=== PATIENT | female | born 1980 | race Caucasian/White ===

== ENCOUNTER 2018-06-21 16:17 | Emergency (ER) | payer OTHER, SELFPAY ==
[2018-06-21 16:33] VITALS: BP 110/60; PULSE 64; RESP 18; TEMP 37.2; O2SAT 99
--- NOTE | 2018-06-21 17:31 | ED.GENADUL_ITS ---
Discharge Plan Disposition Patient Disposition: HOME Condition: Stable Discharge Details Chief Complaint: RespSymp Clinical Impression: Sinusitis Primary Care Provider: Emmanuel Argueta ED Provider: Escobar Maharaj Home Meds and New Rx's Prescriptions: New amoxicillin-pot clavulanate 875-125 mg tablet 1 tab PO BID Qty: 14 RF: 0 Continued multivitamin 1 EACH tablet 1 ea PO DAILY RF: 0 ascorbic acid (vitamin C) 1,000 MG tablet 1,000 mg PO DAILY RF: 0 acetaminophen [Tylenol Extra Strength] 500 MG tablet 500 mg PO PRN RF: 0 ibuprofen [Motrin IB] 200 MG tablet 600 mg PO PRN RF: 0 loratadine-pseudoephedrine [Claritin-D 24 Hour] 1 EACH tablet extended release 24 hr 1 ea PO PRN RF: 0 cholecalciferol (vitamin D3) [Vitamin D3] 400 UNIT capsule 400 unit PO DAILY RF: 0 fluticasone 16 GM spray,suspension 2 puff NS DAILY Qty: 2 RF: 4 Sertraline HCl [Zoloft] 100 MG tablet 100 mg PO DAILY Qty: 90 RF: 4 ranitidine HCl [Zantac] 150 MG tablet 150 mg PO HS RF: 0 Discharge Instructions Instructions: Sinusitis (ED) Additional Instructions: During illness please stay well-hydrated and get plenty of rest. You should continue to use your nasal saline rinses, your Flonase 1-2 puffs daily for the next couple weeks, [id number] Tylenol or Motrin as needed for discomfort, and probiotics 2 hours after your morning antibiotic dose to reduce GI upset. Feel free to return to the emergency department for emergent changes in your symptoms otherwise follow-up with primary care provider as needed for reassessment. Referrals: Emmanuel Argueta, DO [Primary Care Provider] - (As needed for reassessment) Medical Decision Making Patient presenting to the emergency department for chief complaint of cold symptoms. She states that she had a sinus infection in April but improved than 2 weeks ago started having nasal congestion, sinus pressure, nasal drainage. Then over the last 3 days she has developed fever chills, cough, w orsening symptoms. She states that she took some [id number] vitamins and pain medications but symptoms seem to worsen she is presenting the emergency department for evaluation. Patient has physical exam findings positive for sinus tenderness with more on the left than the right and more maxillary than frontal or ethmoid, complaint of some dental pain, mildly erythematous tonsils otherwise unremarkable HEENT exam, no lymphadenopathy, clear lungs and normal cardiac exam. Patient has no signs or symptoms of meningitis, sinus thrombosis, or other emergent diagnoses. Given double illness sign and symptoms greater than 10 days with return of fever patient placed up on Augmentin. Patient states that she had some GI upset with Augmentin as a high school but no signs of anaphylactoid type reaction so patient was agreeable to receiving Augmentin again for her sinus infection. Patient encouraged to use nenj-gkb-gkteocs Flonase, Motrin, and probiotics. After discussion of diagnosis and plan of care patient is no further needs, questions, or concerns and states clear understanding to return to the emergency department for any worsening symptoms. HPI General Mode of arrival: ambulatory . Date/Time Provider Initiated Documentation: 06/21/18 16:37 . Limitations to Documentation: no limitations . Information obtained by: patient and RN notes reviewed . History of Present Illness 37 year old F presents to the emergency department with the chief complaint of cold symptoms, with intensity rated at 2. Quality is described as aching, and is localized to the head (sinus pressure). Patient started experiencing this week(s) (2) and it has been constant. No relieving factors improve symptom(s), No exacerbating factors reported . Patient did receive the following treatments prior to arrival, NSAID Related Data Home Medications Medication Instructions Recorded Confirmed acetaminophen [Tylenol Extra 500 mg PO PRN 11/28/12 06/21/18 Strength] ascorbic acid (vitamin C) 1,000 mg PO DAILY 11/28/12 06/21/18 ibuprofen [Motrin IB] 600 mg PO PRN 11/28/12 06/21/18 multivitamin 1 ea PO DAILY 11/28/12 06/21/18 loratadine-pseudoephedrine 1 ea PO PRN 02/29/16 06/21/18 [Claritin-D 24 Hour] cholecalciferol (vitamin D3) 400 unit PO DAILY 03/12/17 06/21/18 [Vitamin D3] ranitidine HCl [Zantac] 150 mg PO HS 06/29/17 06/21/18 fluticasone 2 puff NS DAILY #2 spray 10/25/17 06/21/18 amoxicillin-pot clavulanate 1 tab PO BID #14 tab 06/21/18 Previous Rx's Medication Instructions Recorded fluticasone 2 puff NS DAILY #2 spray 10/25/17 amoxicillin-pot clavulanate 1 tab PO BID #14 tab 06/21/18 Allergies Allergy/AdvReac Type Severity Reaction Status Date / Time clavulanic acid AdvReac Mild GI Unverified 06/21/18 16:41 General Stated Complaint: RespSymp BANDAR: 3 Review of Systems Constitutional Reports body ache(s), Reports chills, Reports fever(s), Reports headache(s) and Reports malaise Eyes Denies eye discharge ENT Denies otalgia, Reports facial pain, Reports headache(s), Reports nasal congestion, Reports nasal discharge, Denies neck pain, Reports post nasal drip, Reports sinus pain, Reports sinus pressure, Reports sore throat and Denies throat swelling Cardiovascular Denies chest pain and Denies dyspnea Respiratory Reports cough and Denies dyspnea Musculoskeletal Denies joint swelling and Denies neck pain Integumentary/Breasts Denies rash Neurologic Reports headache(s) Allergic/Immunologic Denies throat swelling [facility] Medical History Subserous leiomyoma of uterus (Acute 06/23/16) Right adrenal mass (Acute 05/31/16) Other abnormal Papanicolaou smear of vagina and vaginal 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) Migraine (Acute) Intramural, submucous, and subserous leiomyoma of uterus (Acute 06/19/17) History of tobacco use (Acute) Family hx-breast malignancy (Acute) Depressive disorder (Acute) Family History Mother Breast cancer Father Heart disease Social History Smoking/Tobacco Use Status: Former Tobacco Use Exam Const General: cooperative, comfortable and no acute distress Orientation: alert and awake HENCT Head: normal to inspection, normocephalic and atraumatic Ears: hearing grossly normal bilaterally and TM's normal bilaterally General nose exam: external nose normal Face and sinus: no erythema and sinus tenderness frontal, ethmoid and maxillary (left more than right) Mouth: oral mucosae normal, no drooling, no muffled voice and no trismus Throat: posterior oropharynx normal, tonsils normal and uvula midline Neck Neck: normal visual inspection, full ROM, no lymphadenopathy, no meningeal signs, trachea midline and supple Resp Effort & Inspection: normal respiratory effort and able to speak in complete sentences Auscultation: clear to auscultation bilaterally Cardio Rate: regular rate Rhythm: regular rhythm Heart Sounds: S1 normal, S2 normal, normal S1 and S2, no click, no gallops, no murmurs and no rubs Skin General skin exam: no rashes or lesions noted and dry skin (warm) Neuro General: alert, awake, oriented x3, gait normal and moves all extremities Cognition: normal cognition Speech: speech normal Course Vital Signs Temperature 37.2 C 06/21/18 16:33 Pulse 64 06/21/18 16:33 Respiratory Rate 18 06/21/18 16:33 Blood Pressure 110/60 06/21/18 16:33 Pulse Oximetry 99 06/21/18 16:33 Temperature 37.2 C 06/21/18 16:33 Temperature Source Oral 06/21/18 16:33 Pulse 64 06/21/18 16:33 Respiratory Rate 18 06/21/18 16:33 Respiratory Effort 06/21/18 17:03 Blood Pressure 110/60 06/21/18 16:33 Blood Pressure Position Sitting 06/21/18 16:33 Pulse Oximetry 99 06/21/18 16:33 Oxygen Delivery Method Room Air 06/21/18 16:33 Oxygen Flow Rate 0 06/21/18 16:33 Pain Level 0 06/21/18 16:33
[2018-06-21] MEDS: Amoxicillin 875/Clav. 125 TAB PO (17:36)
== END 2018-06-21 17:52 | disposition home or self-care (01) ==
LOC: ER 18:16
PROVIDERS: Emergency Provider Nurse Practitioner Family; PCP Emergency Medicine
DX: J01.90 Acute sinusitis, unspecified (principal); Z87.891 Personal history of nicotine dependence
CPT/HCPCS: 99283

== ENCOUNTER 2019-08-20 16:46 | Outpatient (REF) | payer OTHER, SELFPAY ==
--- NOTE | 2019-08-20 14:30 | PAPFT_PTH ---
PATIENT: Cami Pierce LOC: [facility] U#:[id number] AGE/SX: 39/F ROOM: RE08/20/[address]: Kristine Jara NP : 1980 BED: DIS: 08/20/2019 SPEC #: [id number] RECD: 08/20/19 18:03 STATUS: CHRISTIAN RENemo #: [id number] ANA: 08/20/19 14:[address]: Kristine Jara NP DEPT: [facility] Cytology RECD BY: Giana Shaffer ENTERED: 08/20/19 18:03 SP TYPE: PAPFT SARIAH DR: Emmanuel Argueta, DO Tissues: 1 - CX/ENDOCX FOR PAP SMEARS Procedures: PAP THIN PREP/UVM Screening HPV DNA PROBE Comments: [id number]
--- NOTE | 2019-08-20 14:30 | LABIA_PTH ---
PATIENT: Cami Pierce LOC: [facility] U#:[id number] AGE/SX: 39/F ROOM: RE08/20/[address]: Kristine Jara NP : 1980 BED: DIS: 08/20/2019 SPEC #: [id number] RECD: 08/20/19 17:08 STATUS: CHRISTIAN RENemo #: [id number] ANA: 08/20/19 14:[address]: Kristine Jara NP DEPT: Surgical Specimen RECD BY: Giana Shaffer ENTERED: 08/20/19 17:08 SP TYPE: LABIA OTHR DR: Emmanuel Argueta, Tissues: 1 - LABIA BX Procedures: GROSS AND MICRO LEVEL 4 Comments: [id number]
== END 2019-08-20 17:06 ==
LOC: LBN 16:46
PROVIDERS: PCP Emergency Medicine; Visit Provider Nurse Practitioner Women's Health
DX: D28.0 Benign neoplasm of vulva (principal); N90.89 Other specified noninflammatory disorders of vulva and perineum
CPT/HCPCS: 88142; 88305; 87624

== ENCOUNTER 2019-11-04 01:40 | Outpatient (CLI) | payer OTHER, SELFPAY ==
--- NOTE | 2019-11-04 07:30 | DI.MAMMO_ITS ---
EXAM: MAMMO SCREENING CLINICAL HISTORY: screening,Z12.39,FAMILY H/O BREAST CA,Z80.3 TECHNIQUE: Bilateral full field digital CC and MLO mammographic images were obtained with 3D tomosyn thesis and utilizing computer aided detection (CAD). COMPARISON: Available for comparison. FINDINGS: Masses/Architectural Distortion: There is increased asymmetric density in the outer left breast seen on the craniocaudad view. Microcalcifications: No suspicious pleomorphic-type are seen. Skin Thickening/Nipple Retraction: None. IMPRESSION: 1. Asymmetric breast tissue seen in the outer left breast on the craniocaudad view. 2. This area should be further evaluated with a spot compression view. Ultrasound may be indicated a t that time. BI-RADS Category 0 - Assessment Incomplete: Need additional imaging evaluation Breast Density - Category B - Scattered areas of fibroglandular density A negative radiographic report should not delay biopsy if a dominant or clinically suspicious mass is present. Up to ten percent of cancers are not identified on mammography. A negative report may reinforce clinical impression. Adenosis and dense breasts may obscure an underlying neoplasm. False positive reports average 6 to 10%. Patient will receive a letter notifying them of these results.
== END 2019-11-04 02:00 ==
PROVIDERS: PCP Emergency Medicine; Visit Provider Nurse Practitioner Women's Health
DX: Z12.31 Encounter for screening mammogram for malignant neoplasm of breast (principal); R92.8 Other abnormal and inconclusive findings on diagnostic imaging of breast; Z80.3 Family history of malignant neoplasm of breast
CPT/HCPCS: 77063; 77067

== ENCOUNTER 2019-11-19 01:53 | Outpatient (CLI) | payer OTHER, SELFPAY ==
--- NOTE | 2019-11-19 | DI.US_ITS ---
EXAM: MG MAMMO SCREEN CALL BACK UNI CLINICAL HISTORY: INCREASED ASYMMETRIC DENSITY IN OUTER LEFT BREAST TECHNIQUE: Mammograms were interpreted according to the usual protocol including computer analysis w [employer] CAD system, tomosynthesis and C-view imaging. COMPARISON: FINDINGS: The additional mammographic views of the left breast and left breast ultrasound are interpreted in co njunction. Recent mammogram showed asymmetric density projected laterally left breast on CC view. Additional ma mmographic view today with CC spot compression view shows no evidence of a mass or significant asymme try. Breast ultrasound shows no evidence of a mass or cyst in the left breast. IMPRESSION: No specific evidence of malignancy at this time. Follow-up unilateral left breast mammogram recommen ded in 6 months. BI-RADS Cat 3 - 6 month - Probably Benign Finding: Recommend follow-up mammography in 6 months: Breast Density - Category B - Scattered areas of fibroglandular density
== END 2019-11-19 02:13 ==
PROVIDERS: PCP Emergency Medicine; Visit Provider Nurse Practitioner Women's Health
DX: Z12.31 Encounter for screening mammogram for malignant neoplasm of breast (principal); R92.8 Other abnormal and inconclusive findings on diagnostic imaging of breast; N64.59 Other signs and symptoms in breast
CPT/HCPCS: 76642; 77063; 77067

== ENCOUNTER 2020-06-03 00:34 | Outpatient (CLI) | payer OTHER, SELFPAY ==
--- NOTE | 2020-06-03 09:20 | DI.MAMMO_ITS ---
EXAM: MG MAMMO DIAGNOSTIC UNI-LEFT CLINICAL HISTORY: 6 month f/u on Cat 3, Left side,R92.8, FAMILY H/O BREAST CA,Z80.3. TECHNIQUE: Unilateral spot mammographic images were obtained with 3D Tomosynthesistechnique and util izing computer aided detection (CAD). COMPARISON: Prior baseline mammogram October 2019. Ultrasound November 2019 was reviewed FINDINGS: The previously described asymmetric density in the upper quadrant of the left breast is unchanged and remains benign in appearance. No discrete concerning nodular density was evident at this level on the prior ultrasound. No other areas of concern in the left breast. Normal appearing microcalcification groups. No oscar ectural distortion. No skin thickening-traction. IMPRESSION: No radiographic evidence of malignancy in left breast. Appropriate follow-up is to keep this patient yearly mammogram schedule, this implying the next [facility] mammogram would be in October or November 2020, with earlier imaging if a self detected breast changes n oted.. BI-RADS Category 2 - Benign Findings Breast Density - Category B - Scattered areas of fibroglandular density Breast density Category C or D implies that the patient has dense breast tissue. Dense breast tissue can make it harder to find cancer on a mammogram. Dense breast tissue is also associated with an incr eased risk of breast cancer. This information about the result of the mammogram report was provided to the patient to raise their awareness. Use this report when you speak with the patient about their risks for breast cancer, which includes their family history. At that time, you may recommend additional screening tests (Ultrasoun d or MRI) as these tests may add significant information. A negative radiographic report should not delay biopsy if a dominant or clinically suspicious mass is present. Up to ten percent of cancers are not identified on mammography. A negative report may reinforce clinical impression. Adenosis and dense breasts may obscure an underlying neoplasm. False positive reports average 6 to 10%. Patient will receive a letter notifying them of these results.
== END 2020-06-03 00:54 ==
PROVIDERS: PCP Emergency Medicine; Visit Provider Nurse Practitioner Women's Health
DX: R92.8 Other abnormal and inconclusive findings on diagnostic imaging of breast (principal); Z80.3 Family history of malignant neoplasm of breast
CPT/HCPCS: 77061; 77065; G0279

== ENCOUNTER 2020-11-05 09:16 | Outpatient (REF) | payer OTHER, SELFPAY ==
[2020-11-05 13:33] LABS: Calculated LDL 142 mg/dL (<100); Cholesterol 208 mg/dL (<200); HDL Cholesterol 41 mg/dL (40-60); Triglyceride 126 mg/dL (<150)
[2020-11-05 14:33] LABS: Hemoglobin A1C 5.6 % (<5.7)
== END 2020-11-05 09:17 | disposition home or self-care (01) ==
LOC: LBN 09:16
PROVIDERS: PCP Emergency Medicine; Visit Provider Emergency Medicine
DX: E11.9 Type 2 diabetes mellitus without complications (principal); E66.3 Overweight
CPT/HCPCS: 80061; 83036

== ENCOUNTER 2021-03-30 15:38 | Outpatient (REF) | payer OTHER, SELFPAY ==
[2021-03-31 23:21] LABS: COVID-19 RT-PCR UVMMC Result Negative (Negative)
== END 2021-03-30 15:39 | disposition home or self-care (01) ==
LOC: LBN 15:38
PROVIDERS: PCP Emergency Medicine; Visit Provider Nurse Practitioner Family
DX: Z20.822 Contact with and (suspected) exposure to COVID-19 (principal); J02.9 Acute pharyngitis, unspecified
CPT/HCPCS: U0003; 87070

== ENCOUNTER 2021-06-20 00:46 | Outpatient (CLI) | payer OTHER, SELFPAY ==
--- NOTE | 2021-06-20 06:45 | DI.MAMMO_ITS ---
Exam(s) MAMMO SCREENING EXAM: MAMMO SCREENING CLINICAL HISTORY: screening,z12.39 TECHNIQUE: Mammograms were interpreted according to the usual protocol including computer analysis w [employer] CAD system, tomosynthesis and C-view imaging. COMPARISON: 2020 FINDINGS: The breasts are composed of scattered fibroglandular densities, Breast Density category B. No suspicious masses or suspicious microcalcifications are seen. No skin thickening or abnormal axillary lymph nodes are seen. There has been no significant change from prior exams. IMPRESSION: BI-RADS Category 1, Negative mammogram Yearly screening mammography is recommended. Breast Density - Category B, scattered fibroglandular densities. A negative radiographic report should not delay biopsy if a dominant or clinically suspicious mass is present. Up to ten percent of cancers are not identified on mammography. A negative report may reinforce clinical impression. Adenosis and dense breasts may obscure an underlying neoplasm. False positive reports average 6 to 10%. Patient will receive a letter notifying them of these results.
== END 2021-06-20 01:06 ==
PROVIDERS: PCP Emergency Medicine; Visit Provider Emergency Medicine
DX: Z12.31 Encounter for screening mammogram for malignant neoplasm of breast (principal)
CPT/HCPCS: 77063; 77067

== ENCOUNTER 2022-07-19 02:01 | Outpatient (CLI) | payer OTHER, SELFPAY ==
--- NOTE | 2022-07-19 07:00 | DI.CT_ITS ---
Exam(s) CT ABDOMEN WO/W EXAM: CT ABDOMEN WO/W CLINICAL HISTORY: F/U RT ADRENAL MASS, E27.9. TECHNIQUE: Imaging Protocol: Axial computed tomography images with coronal and sagittal reformatted images were created and reviewed CONTRAST MATERIAL: Intravenous: Omnipaque 350 Contrast volume:100 mL contrast route:IV - Oral: No COMPARISON: CT ABD PELVIS WITH CONTRAST from 05/30/2016 FINDINGS: ABDOMEN: Lung Bases: Normal where visualized. Liver: Normal density. No measurable mass. Gallbladder and biliary tract: No radiodense calculus or dilation. Pancreas: Normal density, no abnormal calcifications or inflammatory process. Spleen: Normal. Kidneys: Normal size, contour and axis. No radiodense stones or obstructive uropathy. No masses seen. Adrenal glands: Homogeneous circumscribed mass right adrenal gland shows mild increase in size when c ompared with 2016, measuring 2.7 x 3.2 cm compared with 2.2 cm on the prior exam.. Pre contrast imag ing shows water density. Postcontrast imaging and delayed imaging show high relative and absolute wa shout values of above 80 percent. The findings are consistent with an adenoma. Abdominal Aorta: Abdominal portion non-dilated. Lymph nodes: Within normal limits. Bones: Unremarkable for age. IMPRESSION: Imaging characteristics of right adrenal mass are consistent with an adenoma. There has been mild in terval increase in size compared with 2016. RADIATION DOSE DELIVERED: 1,932.43mGy.cm Total DLP DATA REPOSITORY: All CT scans at this facility are submitted to the National Radiology Data Registry (NRDR) Dose Index Registry (DIR) with the [employer] (ACR). RADIATION OPTIMIZATION: All CT scans at this facility use at least one of these dose optimization te chniques: automated exposure control; mA and/or kV adjustment per patient size (includes targeted exa ms where dose is matched to clinical indication); or iterative reconstruction.
[2022-07-19] MEDS: Omnipaque 350 MG/ML 500 ML BTL-Imaging package IJ (09:10)
== END 2022-07-19 02:21 ==
PROVIDERS: PCP Nurse Practitioner Family; Visit Provider Nurse Practitioner Family
DX: E27.8 Other specified disorders of adrenal gland (principal); D35.01 Benign neoplasm of right adrenal gland
CPT/HCPCS: 74170

== ENCOUNTER 2022-07-26 02:29 | Outpatient (CLI) | payer OTHER, SELFPAY ==
--- NOTE | 2022-07-26 08:30 | DI.MAMMO_ITS ---
Exam(s) MAMMO SCREENING EXAM: MAMMO SCREENING CLINICAL HISTORY: SCREENING FOR BREAST CANCER Z12.39 FAM HX BREAST CANCER Z80.3 TECHNIQUE: Bilateral full field digital CC and MLO mammographic images were obtained with 3D tomosyn thesis and utilizing computer aided detection (CAD). COMPARISON: Available for comparison. FINDINGS: Masses/Architectural Distortion: There is a 5 mm nodule in the outer right breast on the craniocaudad view. Not readily apparent on the prior examination. There are no areas of architectural distortio n. Microcalcifications: No suspicious pleomorphic-type are seen. Skin Thickening/Nipple Retraction: None. IMPRESSION: 1. New 5 mm nodule in the outer right breast on the craniocaudad view. 2. Spot compression of the right CC is recommended. In addition, spot compression of the upper right breast on the MLO views recommended. Ultrasound may be indicated at that time. BI-RADS Category 0 - Assessment Incomplete: Need additional imaging evaluation Breast Density - Category B - Scattered areas of fibroglandular density Breast density category C or D implies that the patient has dense breast tissue. Dense breast tissue is very common and is not abnormal but dense breast tissue can make it harder to find cancer on a ma mmogram. Also, dense breast tissue may increase their breast cancer risk. This information about the result of the mammogram report was provided to the patient to raise their awareness. Use this report when you speak with the patient about their risks for breast cancer, which includes their family hist ory. At that time, you may recommend for more screening tests (Ultrasound or MRI) as they might be us eful based on their risk. A negative radiographic report should not delay biopsy if a dominant or clinically suspicious mass is present. Up to ten percent of cancers are not identified on mammography. A negative report may reinforce clinical impression. Adenosis and dense breasts may obscure an underlying neoplasm. False positive reports average 6 to 10%. Patient will receive a letter notifying them of these results.
== END 2022-07-26 02:49 ==
LOC: DI 02:29
PROVIDERS: PCP Nurse Practitioner Family; Visit Provider Nurse Practitioner Family
DX: Z12.31 Encounter for screening mammogram for malignant neoplasm of breast (principal); R92.8 Other abnormal and inconclusive findings on diagnostic imaging of breast
CPT/HCPCS: 77063; 77067

== ENCOUNTER 2022-07-31 00:24 | Outpatient (CLI) | payer OTHER, SELFPAY ==
--- NOTE | 2022-07-31 10:15 | DI.MAMMO_ITS ---
Exam(s) MAMMO SCREEN CALL BACK UNI EXAM: MAMMO SCREEN CALL BACK UNI CLINICAL HISTORY: 5 MM NODULE IN OUTER RT BREAST ON CC VIEW TECHNIQUE: Spot compression views with tomographic imaging were performed. COMPARISON: 26 July 2022 and exams back to 2018. FINDINGS: Spot compression cc and MLO views were performed for an area of nodularity in the upper outer quadran t. Additional CC spot compression view was performed of the medial right breast for an area of nodul ar asymmetry. No suspicious masses or suspicious microcalcifications are seen. The medial breast, no persistent abnormality is seen on the additional views performed. The findings are consistent with overlying fibroglandular tissue. In the upper outer quadrant the lesion corresp onds to a skin tag. There has been no significant change from prior exams. IMPRESSION: BI-RADS Category 1, Negative Yearly screening mammography is recommended. Breast Density - Category B, scattered fibroglandular densities.
== END 2022-07-31 00:44 ==
LOC: DI 00:24
PROVIDERS: PCP Nurse Practitioner Family; Visit Provider Nurse Practitioner Family
DX: Z12.31 Encounter for screening mammogram for malignant neoplasm of breast (principal)
CPT/HCPCS: 77063; 77067

== ENCOUNTER 2023-01-17 08:40 | Outpatient (REF) | payer OTHER, SELFPAY ==
[2023-01-17 14:58] LABS: Abs Immature Grans 0.02 10^3/uL (0.0-0.06); Absolute Basophil Count 0.07 10^3/uL (0.0-0.2); Absolute Eosinophil Count 0.24 10^3/uL (0.0-0.7); Absolute Monocyte Count 0.67 10^3/uL (0.1-0.8); Absolute Neutrophil Count 6.06 10^3/uL (1.2-6.7); Basophils % 0.7; Eosinophils % 2.5; HCT 44.2 % (36.0-46.0); HGB 15.3 g/dL (11.2-15.7); Immature Grans % 0.2; Lymphocytes % 27.7; MCH 32.7 pg (27.0-33.0); MCHC 34.6 % (32.0-36.0); MCV 94 fL (80-95); Monocytes % 6.9; Platelet Count 377 10^3/uL (130-400); RBC 4.68 10^6/uL (3.93-5.22); RDW 11.9 % (11.7-14.6); RDW-SD 41.4 fL; WBC 9.76 10^3/uL (4.4-10.8)
[2023-01-17 15:44] LABS: ALT 36 U/L (14-59); AST 22 U/L (15-37); Albumin 3.8 g/dL (3.4-5.0); Alkaline Phosphatase 81 U/L (46-116); Anion Gap 8.3 mmol/L (3-11); BUN 9 mg/dL (7-18); Bilirubin, Total 0.5 mg/dL (0.2-1.0); CO2 27.7 mmol/L (21.0-32.0); CREATININE 0.9 mg/dL (0.55-1.02); Calcium 8.7 mg/dL (8.5-10.1); Calculated LDL 119 mg/dL (<100); Chloride 105 mmol/L (98-107); Cholesterol 208 mg/dL (<200); Estimated GFR 80.84 (mL/min/1.73m2); Glucose 108 mg/dL (74-106); HDL Cholesterol 39 mg/dL (40-60); Potassium 4.7 mmol/L (3.5-5.1); Sodium 141 mmol/L (136-145); TSH (W/Ref FT4) 2.59 uIU/mL (0.36-3.74); Total Protein 6.8 g/dL (6.4-8.2); Triglyceride 253 mg/dL (<150)
== END 2023-01-17 08:41 | disposition home or self-care (01) ==
LOC: NCHCN 08:40
PROVIDERS: PCP Nurse Practitioner Family; Visit Provider Nurse Practitioner Family
DX: R53.83 Other fatigue (principal); E66.9 Obesity, unspecified; F32.9 Major depressive disorder, single episode, unspecified; Z13.220 Encounter for screening for lipoid disorders
CPT/HCPCS: 80053; 80061; 84443; 85025

== ENCOUNTER 2024-01-10 13:46 | Outpatient (REF) | payer OTHER, SELFPAY ==
--- OUTSIDE RECORDS SUMMARY | 2024-01-10 13:49 | XMS_ITS | Encounter Summary ---
Author Organization [facility] Address [address] [place] [address] Care Team Providers Care Boatswains Mate Name Role Phone Emmanuel Argueta Primary Care Provider [phone] Encounter Details Date Type Department Care Team (Late st Contact Info) Description 08/20/2019 Lab Requisition [facility] Pathology & Laboratory Medicine - [address] [address] Kristine Jara, TYRE BUILDER [address] [place] [address] Encounter for other general examination Social History Tobacco Use Types Packs/Day Years Used Date Smoking Tobacco: Never Assessed Sex and Gender Information Value Date Recorded Sex Assigned at Not on file Gender Identity Not on file Sexual Orientation Not on file documented as of this encounter Plan of Treatment Not on file documented as of this encounter Procedures Procedure Name Priority Date/Time Associated Diagnosis Comments SURGICAL PATHOLOGY Today 08/20/2019 14 :30 EST Encounter for other general examination documented in this encounter Results * SURGICAL PATHOLOGY (08/20/2019 14:30 EST) Final Diagnosis A. SKIN OF VULVA, LABIA MINORA, RIGHT, SHAVE BIOPSY: - Acrochordon. See microscopic. 08/21/2019 14:20 EST [facility] at 1420 Microscopic Description Viral cytopathic effect is not seen. 08/21/2019 14:20 EST [facility] Clinical History R labia condyloma 08/21/2019 14:20 [facility] Attestation By the signature below, the attending physician certifies that they have 1) personally conducted a gross and/or microscopic examination of the described specimen(s), and/or personally interpreted the results of laboratory testing of the described specimen(s), and 2) personally rendered or confirmed the above diagnosis. 08/21/2019 14:20 [facility] at 1420 Gross Description A. Received in formalin labelled with proper patient identification (initials H, K) and R labia is a shave biopsy of a wrinkled wade couch polypoid skin covered nodule measuring 0.9 x 0.9 x 0.3 cm. Trisected and submitted entirely in A1. Kerri Lopez 08/21/2019 7:36 08/21/2019 14:20 [facility] Scanned Images 08/21/2019 14:20 [facility] Tissue STRUCTURE OF RIGHT LABIUM MINUS / Unknown 08/20/2019 14:30 EST 08/20/2019 22:16 EST Kristine Jara APRN PATHOLOGY ORDERAB LES [facility] [address] [place] [address] documented in this encounter Visit Diagnoses Diagnosis Encounter for other general examination documented in this encounter Care Teams Boatswains Mate Relationship Specialty Start Date End Date Emmanuel Argueta DO [address] [place] [id number] PCP - General 07/09/17 documented as of this encounter
--- OUTSIDE RECORDS SUMMARY | 2024-01-10 13:49 | XMS_ITS | Clinical Summary ---
Author Organization [facility] Address [address] [place] [address] Care Team Providers Care Delicatessen Goods Stock Clerk Name Role Phone KendallEmmanuel DO Primary Care Provider [phone]- [phone] Social History Tobacco Use Types Packs/Day Years Used Date Smoking Tobacco: Never Assessed Interpersonal Safety Answer Date Record ed Physically Hurt Never 01/18/2020 Verbally Threaten Not on file 01/18/2020 Sex and Gender Information Value Date Recorded Sex Assigned at Not on file Gender Identity Not on file Sexual Orientation Not on file Plan of Treatment Health Maintenance Due Date Last Done Comments Hepatitis C Screen 1980 Hepatitis B Vaccine (1 of 3 - 19+ 3-dose series) 08/15 COVID-19 Vaccine (2022- season) 2023 Care Teams Del[employer]atessen Goods Stock Clerk Relationship Specialty Start Date End Date Emmanuel Argueta DO [address] [place] [address] PCP - General 07/09/17
--- OUTSIDE RECORDS SUMMARY | 2024-01-10 13:49 | XMS_ITS | Encounter Summary ---
Author Organization [facility] Address [address] [place] [address] Care Team Providers Care Enterostomal Therapy Nurse Name Role Phone Unknown, Provider Primary Care Provider [phone] Encounter Details Date Type Department Care Team (Late st Contact Info) Description 07/04/2017 Results Only [facility] [phone] Paris Paz, [facility] [address] [place] [phone] Social History Tobacco Use Types Packs/Day Years Used Date Smoking Tobacco: Never Assessed Sex and Gender Information Value Date Recorded Sex Assigned at Not on file Gender Identity Not on file Sexual Orientation Not on file documented as of this encounter Plan of Treatment Not on file documented as of this encounter Procedures Procedure Name Priority Date/Time Associated Diagnosis Comments SURGICAL PATHOLOGY Routine 07/04/2017 9:58 EST documented in this encounter Results * SURGICAL PATHOLOGY (07/04/2017 9:58 EST) Pathology Report: SURGICAL PATHOLOGY REPORT Reports generated via electronic interface contain original data; however they are lacking the format of the original report. Caution should be taken when reading/interpreti ng unformatted reports. Name: ? ARIAS PIERCE ? Accession #: ? [id number] ? : ? 1980 (Age: 36) ??F ? Collect Date: ? 07/04/2017 ? Location: ? [facility] ? Receive Date: ? 07/05/2017 ? Provider: KEENAN WALTERS MD Copy to: HOOD LORENZO DO ? Final Pathologic Diagnosis: A. UTERUS AND FALLOPIAN TUBE, LEFT, HYSTERECTOMY AND SALPINGECTOMY: - Fragmented uterine tissue with: ? - Inactive endometrium. ? - Focally sclerotic leiomyomata, intramural. ? - Uterine serosa with no specific histopathologic features. - Fallopian tube, left: ? - Benign fallopian tube with no specific histopathologic features. B. FALLOPIAN TUBE, RIGHT, SALPINGECTOMY: - Paratubal cyst. Document reviewed and electronically signed by: Marine Malone MD Report ??Date: 07/07/2017 09:55 By the signature above, the attending physician certifies that he/she has personally conducted a gross and/or microscopic examination of the described specimens and rendered or confirmed the above diagnosis. Specimen(s) Received: A. ??Uterus and left fallopian tube B. ??Right fallopian tube Clinical History: Multiple uterine fibroids, S/P progesterone x3+ months; bilateral risk reducing salpingectomy Gross Description: A. ?Received in formalin labelled with proper patient identification (initials H, K) and uterus and left fallopian tube are multiple fragmented irregular uterine tissues, weighing 298 g and measuring 18.0 x 15.0 x 6.0 cm in aggregate. Obvious cervical tissues are not identified. Areas of intact serosa are without adhesions. The endometrial cavity appears compressed and is lined by a glistening wade surface, less than 0.1 cm in thickness. The myometrial tissues are trabecular and show a few intact yellow-couch to couch-white nodules. The majority of the tissue cores consist of similar disrupted trabecular yellow-couch to baptiste-white parenchyma, with focal areas of hemorrhage, suggestive of leiomyomatous tissue. Received in the same container is a 5.0 cm in length unremarkable fallopian tube, ranging from 0.4-0.8 cm in diameter. Vascular Technologist Sonographer sections are submitted as follows: BLOCK GALLO A1-A5- ??endomyometrium A6- ??uterine serosa A7-A14- ??leiomyomatous tissue cores A15- ??left fallopian tube, to include entire distal end and central cross sections B. ?Received in formalin labelled with proper patient identification (initials H, K) and right fallopian tube is a slightly tortuous fallopian tube segment (2.5 cm in length and 0.8 cm in diameter). The central tube shows an intact clear fluid filled thin walled cyst (0.4 cm in greatest dimension). Sections through the tube show a patent lumen, with an unremarkable wall. The entire fallopian tube tissue is submitted in B1 and B2. DENISE Ferrara (ASCP) 07/05/2017 2:42 PM End of Report [facility] 07/04/2017 9:58 EST 07/05/2017 9:58 EST Keenan Walters MD PATHOLOGY ORDERABLES [facility] [address] [place] [address] documented in this encounter Visit Diagnoses Not on filedocumented in this encounter Care Teams Enterostomal Therapy Nurse Relationship Specialty Start Date End Date Unknown, Provider, PCP - General 07/15/10 07/08/17 documented as of this encounter
--- OUTSIDE RECORDS SUMMARY | 2024-01-10 13:49 | XMS_ITS | Referral Summary ---
Author Organization [facility] Address [address] [place] [address] Care Team Providers Care Information Systems Security Manager Name Role Phone KendallEmmanuel lemus Primary Care Provider [phone] Social History Tobacco Use Types Packs/Day Years Used Date Smoking Tobacco: Never Assessed Interpersonal Safety Answer Date Record ed Physically Hurt Never 01/18/2020 Verbally Threaten Not on file 01/18/2020 Sex and Gender Information Value Date Recorded Sex Assigned at Not on file Gender Identity Not on file Sexual Orientation Not on file Plan of Treatment Not on file Care Teams Information Systems Security Manager Relationship Specialty Start Date End Date Emmanuel Argueta DO [address] [place] [address] PCP - General 07/09/17
--- OUTSIDE RECORDS SUMMARY | 2024-01-10 13:49 | XMS_ITS | Encounter Summary ---
Author Organization [facility] Address [address] [place] [address] Care Team Providers Care Metal Pourer Name Role Phone Unknown, Provider Primary Care Provider [phone] Encounter Details Date Type Department Care Team (Late st Contact Info) Description 02/01/2015 Results Only [facility] [phone] Paris Paz, [facility] [address] [place] [phone] Social History Tobacco Use Types Packs/Day Years Used Date Smoking Tobacco: Never Assessed Sex and Gender Information Value Date Recorded Sex Assigned at Not on file Gender Identity Not on file Sexual Orientation Not on file documented as of this encounter Plan of Treatment Not on file documented as of this encounter Procedures Procedure Name Priority Date/Time Associated Diagnosis Comments PAP TEST- RESULT ONLY Routine 02/01/2015 0:00 EDT documented in this encounter Results * PAP TEST- RESULT ONLY (02/01/2015 0:00 EDT) Pathology Report: CYTOPATHOLOGY REPORT Reports generated via electronic interface contain original data; however they are lacking the format of the original report. Caution should be taken when reading/interpreti ng unformatted reports. Name: ? CAMI PIERCE ? Accession #: ? [id number] ? : ? 1980 (Age: 34) ??F ?Collect Date: ? 02/01/2015 ? Location: ? [facility] ? Receive Date: ? 02/02/2015 ? Provider: PARIS PAZ BED TEACHER Copy to: HOOD LORENZO DO ? Final Report SPECIMEN ADEQUACY ? Satisfactory for Evaluation - transformation zone component present GENERAL CATEGORIZATION ? Negative for Intraepithelial Lesion or Malignancy ?? Last Menstrual Period: 12/09/14 Specimen/Source: ??Pap Test, Cervix/Endocervix, ThinPrep Imaging System with manual evaluation Document reviewed and electronically signed by: ? Pete Rogers, CT(ASCP) ? Report ??Date: 02/04/2015 15:18 HPV with Pap Test ? Date Ordered: ? 02/04/2015 ? Status: ?? Signed Out ?Date Complete: ? 02/08/2015 ? By: ??System Interface ? Date Reported: ? 02/08/2015 ? Interpretation RESULT: Negative for HPV. No E6 or E7 mRNA is detected from HPV types 16,18,31,33,35, 39,45,51,52,56,58, 59,66, and 68 by medical transcription editor mediated amplification. Comments Document reviewed and electronically signed by: ? System Interface ? Report date: 02/08/2015 By the signature above, the attending physician certifies that he/she has personally conducted a gross and/or microscopic examination of the described specimens and rendered or confirmed the above diagnosis. End of Report [facility] 02/01/2015 02/02/2015 Paris Paz BED TEACHER PATHOLOGY ORDERABLES [facility] [address] [place] [address] documented in this encounter Visit Diagnoses Not on filedocumented in this encounter Care Teams Metal Pourer Relationship Specialty Start Date End Date Unknown, Provider, PCP - General 07/15/10 07/08/17 documented as of this encounter
--- OUTSIDE RECORDS SUMMARY | 2024-01-10 13:49 | XMS_ITS | Encounter Summary ---
Author Organization [facility] Address [address] [place] [address] Care Team Providers Care Director Of Strategic Marketing Name Role Phone KendallEmmanuel lemus Primary Care Provider [phone] Encounter Details Date Type Department Care Team (Late st Contact Info) Description 08/21/2019 Lab Requisition [facility] Pathology & Laboratory Medicine - [address] [address] Kristine Jara, HAND BINDER STRIPPER [address] [place] [phone] Encounter for other general examination [...] Name Priority Date/Time Associated Diagnosis Comments PAP TEST Today 08/20/2019 14:30 EST Encounter for other general examination HPV DNA DETECTION WITH GENOTYPING, PCR Today 08/20/2019 14:30 EST Encounter for other general examination documented in this encounter Results * HUMAN PAPILLOMAVIRUS (HPV) DETECTION-HIGH RISK TYPES (08/20/2019 14:30 EST) HPV other High Risk types, PCR Negative Negative 08/27/2019 15:00 EDT [facility] Comment:No E6 or E7 mRNA is detected from HPV types 16,18,31,33,35,39,45,51,52,56,58,59,66, and 68 by life insurance specialist mediated amplification. Papanicolaou smear specimen (specimen) CERVIX UTERI STRUCTURE / Unknown 08/20/2019 14:30 EST 08/26/2019 16:39 EDT Kristine Jara FREDDY MICROBIOLOGY - GE NERAL ORDERABLES [facility] [address] [place] [id number] * PAP TEST (08/20/2019 14:30 EST) Specimens A. Cervix and/or Endocervix, , ThinPrep Imaging System with Manual Evaluation 08/27/2019 15:00 EDT [facility] Specimen Adequacy Satisfactory for Evaluation - transformation zone component absent 08/27/2019 15:00 EDT [facility] General Categorization Negative for intraepithelial lesion or malignancy 08/27/2019 15:00 T [facility] Attestation By the signature below, the attending physician certifies that they have personally conducted a gross and/or microscopic examination of the described specimens and rendered or confirmed the above diagnosis. 08/27/2019 15:00 T [facility] at 1500 Clinical History SEE ORDER COMMENTS 08/27/2019 15:00 T [facility] HPV The result for the Human Papillomavirus (HPV) Detection-High Risk Types is Negative. No E6 or E7 mRNA is detected from HPV types 16,18,31,33,35,39 ,45,51,52,56,58,5 9,66, and 68 by life insurance specialist mediated amplification.Nupur ting was performed on specimen [id number] and was resulted on 08/27/2019 1452 EDT by MARK, LAB INSTRUMENT RESULTS IN 08/27/2019 15:00 EDT [facility] Scanned Images 08/27/2019 15:00 EDT [facility] Papanicolaou smear specimen (specimen) CERVIX UTERI STRUCTURE / Unknown 08/20/2019 14:30 EST 08/21/2019 10:14 EST Kristine Trudy Marek HAND BINDER STRIPPER PATHOLOGY ORDERAB LES [facility] [address] [place] [address] documented in this encounter Visit Diagnoses Diagnosis Encounter for other general examination documented in this encounter Care Teams Director Of Strategic Marketing Relationship Specialty Start Date End Date Emmanuel Argueta DO [address] [place] [address] PCP - General 07/09/17 documented as of this encounter
--- OUTSIDE RECORDS SUMMARY | 2024-01-10 13:49 | XMS_ITS | Encounter Summary ---
Author Organization [facility] Address [address] [place] [address] Care Team Providers Care Income Auditor Name Role Phone Unknown, Provider Primary Care Provider [phone] Encounter Details Date Type Department Care Team ([facility] st Contact Info) Description 11/03/2011 Results Only [facility] [phone] Keenan Walters MD [address] [place] [address] Social History Tobacco Use Types Packs/Day Years Used Date Smoking Tobacco: Never Assessed Sex and Gender Information Value Date Recorded Sex Assigned at Not on file Gender Identity Not on file Sexual Orientation Not on file documented as of this encounter Plan of Treatment Not on file documented as of this encounter Procedures Procedure Name Priority Date/Time Associated Diagnosis Comments SURGICAL PATHOLOGY Routine 11/03/2011 0:00 EDT documented in this encounter Results * SURGICAL PATHOLOGY (11/03/2011 0:00 EDT) Pathology Report: SURGICAL PATHOLOGY REPORT Reports generated via electronic interface contain original data; however they are lacking the format of the original report. Caution should be taken when reading/interpreting unformatted reports. Name: ? CAMI PIERCE ? Accession #: ? [id number] ? : ? 1980 (Age: 31) ??F ? Collect Date: ? 11/03/2011 ? Location: ? [facility] ? Receive Date: ? 11/03/2011 ? Provider: KEENAN WALTERS MD Copy to: HOOD LORENZO DO ? Final Pathologic Diagnosis: ? Skin of labia, left, excision: ? - Follicular cyst, infundibular type, with evidence of rupture. See comment. Comment: ? This case was shown in intradepartmental consultation. Document reviewed and electronically signed by: PB DIAZ MD Report ??Date: 11/08/2011 08:38 By the signature above, the attending physician certifies that he/she has personally conducted a gross and/or microscopic examination of the described specimens and rendered or confirmed the above diagnosis. Specimen(s) Received: ? Removal of L labia mass Clinical History: ? L labia mass Gross Description: ? Received in formalin labelled Stan, Cami and L labia mass is a 1.5 x 1.0 cm unoriented elliptical excision of pink-wade skin. ??There is a central 1.0 x 0.8 x 0.6 cm firm nodule that has a pink-white, wrinkled surface. ??The margins are inked black. ??The specimen is serially sectioned and entirely submitted with central sections in (A1) and (A2) and tips reverse en face in (A3). ??(Nancy Kee)/mpl End of Report [facility] 11/03/2011 11/03/2011 9:4 2 EDT Keenan Walters MD PATHOLOGY ORDERABLES [facility] [address] [place] [address] documented in this encounter Visit Diagnoses Not on filedocumented in this encounter Care Teams Income Auditor Relationship Specialty Start Date End Date Unknown, Provider, PCP - General 07/15/10 07/08/17 documented as of this encounter
--- OUTSIDE RECORDS SUMMARY | 2024-01-10 13:49 | XMS_ITS | Encounter Summary ---
Author Organization [facility] Address [address] [place] [address] Care Team Providers Care Batch Plant Operator Name Role Phone Kendall, Emmanuel Juaquin Primary Care Provider [phone] Encounter Details Date Type Department Care Team (Late st Contact Info) Description 03/30/2021 Lab Requisition [facility] Pathology & Laboratory Medicine - [address] [id number] Outr Resulting Lab, Provider Social History Tobacco Use Types Packs/Day Years [...] Procedure Name Priority Date/Time Associated Diagnosis Comments ZZCOVID-19 TEST [facility] PCR Today 03/30/2021 11:45 EDT COVID-19 TESTING Routine 03/30/2021 11:4 5 EDT documented in this encounter Results * COVID-19 TEST [facility] PCR (03/30/2021 11:45 EDT) Swab ENTIRE NASOPHARYNX / Unknown 03/30/2021 11:45 EDT 03/30/2021 22:23 EDT Provider Outr Resulting Lab MICROBIOLOGY - GENERAL ORDERABLES [facility] [address] [place] [address] * COVID-19 TESTING (03/30/2021 11:45 EDT) COVID-19 rt-PCR Result Negative Negative 03/31/2021 23:16 EDT [facility] Comment: This test has not been FDA cleared or approved. This test has been authorized by FDA under an EUA for use by authorized laboratories. This test has been authorized only for detection of nucleic acid from 2019-nCoV, not for any other viruses or pathogens. This test is only authorized for the duration of the declaration that circumstances exist justifying the authorization of emergency use of in vitro diagnostic tests for detection and/or diagnosis of 2019-nCoV under section 564(b)(1) of Act, 21 U.S.C ?? 360bbb-3(b) (1), unless the authorization is terminated or revoked sooner. Negative results do not preclude 2019-nCoV infection and should not be used as the sole basis for treatment or other patient management decisions. Negative results must be combined with clinical observations, patient history, and epidemiological information. Performed on the CogniSensher Fusion instrument Performing Lab [place] [facility] 03/31/2021 23:16 EDT [facility] Swab 03/30/2021 11:4 5 EDT 03/30/2021 22:23 EDT Provider Outr Resulting Lab MICROBIOLOGY - GENERAL ORDERABLES [facility] [address] [place] [address] documented in this encounter Visit Diagnoses Not on filedocumented in this encounter Care Teams Batch Plant Operator Relationship Specialty Start Date End Date Emmanuel Argueta DO [address] [place] [address] PCP - General 07/09/17 documented as of this encounter
--- OUTSIDE RECORDS SUMMARY | 2024-01-10 13:49 | XMS_ITS | Encounter Summary ---
Author Organization [facility] Address [address] [place] [address] Care Team Providers Care Boilermaker Name Role Phone Unknown, Provider Primary Care Provider [phone] Encounter Details Date Type Department Care Team (Latest Contact Info) Description 07/04/2017 13:55 EST - 07/04/2017 23:59 EST Hospital Encounter [address] [address] Unknown, Provider, Discharge Disposition: Home or Self Care Social History Tobacco Use Types Packs/Day Years Used Date Smoking Tobacco: Never Assessed Sex and Gender Information Value Date Recorded Sex Assigned at Not on file Gender Identity Not on file Sexual Orientation Not on file documented as of this encounter Discharge Disposition Disposition Code Departure Means Destination Home or Self Senior Living documented in this encounter Plan of Treatment Not on file documented as of this encounter Visit Diagnoses Not on filedocumented in this encounter Care Teams Boilermaker Relationship Specialty Start Date End Date Unknown, Provider, PCP - General 07/15/10 07/08/17 documented as of this encounter
--- OUTSIDE RECORDS SUMMARY | 2024-01-10 13:49 | XMS_ITS | Encounter Summary ---
Author Organization [facility] Address [address] [place] [address] Care Team Providers Care Bonding Molder Name Role Phone Unknown, Provider Primary Care Provider Encounter Details Date Type Department Care Team ([facility] st Contact Info) Description 10/30/2011 Results Only [facility] - [facility] ([facility] [address] [place] [address] Paris Paz, [facility] [address] [place] [phone] Social History Tobacco Use Types Packs/Day Years [...] Diagnosis Comments PAP TEST- RESULT ONLY Routine 10/30/2011 0:00 EDT documented in this encounter Results * PAP TEST- RESULT ONLY (10/30/2011 0:00 EDT) Pathology Report: CYTOPATHOLOGY REPORT Reports generated via electronic interface contain original data; however they are lacking the format of the original report. Caution should be taken when reading/interpreti ng unformatted reports. Name: ? CAMI PIERCE ? Accession #: ? [id number] : ? 1980 (Age: 31) ??F ?Collect Date: ? 10/30/2011 Location: ? [facility] ? Receive Date: ? 10/31/2011 Provider: ?PARIS PAZ TRENCH DIGGER Copy to: ?HOOD LORENZO DO ? Specimen/Source: ?Pap Test, Cervix/Endocervix, ThinPrep Imaging System with manual evaluation Last Menstrual Period: ? 10/19/11 ? SPECIMEN ADEQUACY ? Satisfactory for Evaluation - transformation zone component present GENERAL CATEGORIZATION ? Negative for Intraepithelial Lesion or Malignancy ? Document reviewed and electronically signed by: ? Isabel Solis CT(ASCP) ? Report Date: ??11/02/2011 14:37 End of Report [facility] 10/30/2011 10/31/2011 Paris Paz TRENCH DIGGER PATHOLOGY ORDERABLES Performing Organization Address City/State/[facility] Co de Phone Number FERNAN[facility] DEY [address] [place] [address] documented in this encounter Visit Diagnoses Not on filedocumented in this encounter Care Teams Bonding Molder Relationship Specialty Start Date End Date Unknown, Provider, PCP - General 07/15/10 07/08/17 documented as of this encounter
--- OUTSIDE RECORDS SUMMARY | 2024-01-10 13:50 | XMS_ITS | Encounter Summary ---
Author Organization [facility] [place] [address] Care Team Providers Care Eyeglass Cutter Name Role Phone Emmanuel Argueta DO Primary Care Provider Reason for Visit * Reason Comments Family History Encounter Details Date Type Department Care Team (Late st Contact Info) Description 03/29/2012 9:00 AM EDT Office Visit Hematology Oncology at [address] [phone] Kranthi Shelley MD [facility] [place] [address] Family history of malignant neoplasm of breast (Primary Dx) Discharge Disposition: Home Social History Tobacco Use Types Packs/Day Years Used Date Smoking Tobacco: Never Assessed Sex and Gender Information Value Date Recorded Sex Assigned at Not on file Gender Identity Not on file Sexual Orientation Not on file documented as of this encounter Progress Notes * Kranthi Shelley MD - 04/02/2012 8:49 AM EDT Ms. Pierce was seen by Ceci Lucas, , [facility] and myself in consultation at the request of Dr. Emmanuel Argueta to advise regarding possible heritable predisposition to cancer. Reason for referral/Chief complaint Family history of breast cancer. Medical history Cancer hx and treatment: n/a Age at 1st menses: 9 Age at 1st child: n/a Menopause status: premenopausal Oral contraceptive use: n/a Hormone replacement therapy use: n/a Current cancer screening: periodic mammogram, annual DRUPAL PHP DEVELOPER exam Family History Problem Relation Age of Onset ??? Testicular cancer Brother 33 ??? Breast Cancer Mother 47 ??? Cancer Paternal Grandfather unknown primary Genetic risk assessment Based on personal and/or family history, Cami's risk of being a BRCA1/BRCA2 carrier is low, lessthan 1%. Genetic testing is not recommended. Screening Recommendations Based on personal and/or family history, we recommend: Breast cancer screening Monthly self breast exams and annual clinical breast exams Annual mammograms In addition, Cami may consider annual breast MRI screening, specifically if she has dense breasttissue on mammography. Ideally, this should be performed at a facility that has breast MRI directedbiopsy capability such as the [facility] Radiology Department. Cami's health care providers may contact the [facility] Radiology Department at [phone] in order to schedule this study for her in the future. Ovarian cancer screening We do not recommend any special screening studies in addition to an annual DRUPAL PHP DEVELOPER exam at this time. Other cancer screening Colonoscopy screening starting at age 50 Background information Breast cancer is a relatively common disease within the general population. It affects approximately 1 in 8 (about 12%) of [place] women over the course of a lifetime. This ???lifetime?? risk refers to a woman???s chance of developing breast cancer by age 85. Ovarian cancer is less common than breast cancer, but still a major health concern for women. The majority of breast and ovarian cancer is sporadic, meaning it is caused by random alterations that occur in the genes over the course of a person???s lifetime. Only about 5-10% of breast and ovarian cancer is due to an inherited alteration in a cancer susceptibility gene. The two main cancer susceptibility genes that have been discovered to be involved in familial breast and/or ovarian cancer are called BRCA1 and BRCA2 (BR=breast, CA=cancer). Like other tumor suppressor genes, they code for proteins that under normal conditions function to suppress the development of certain forms of cancer. When an individual inherits an altered copy of one of these genes from either parent the chances of cancer arising later in life are increased (see below). Because we all have two copies of each type of gene, one from each parent, there is a 50% chance that each child of an individual carrying an alteration in BRCA1 or BRCA2 will inherit the non-functioning copy of the gene, and therefore will also have an increased risk for cancer. Likewise, there is a 50% chance that a child will inherit the normally functioning gene and will not be at an increased risk for cancer. The most significant consequences of inheriting an altered copy of BRCA1 or BRCA2 are increased risks for breast cancer and ovarian cancer. For a woman, lifetime risk of breast cancer is approximately 50-80%, compared to a 12% lifetime risk for the general [place] population. Lifetime risk of ovarian cancer is also significantly increased (estimates vary, but are at least 10 to 20 times greater than the 2% lifetime risk seen in the general population). Men who have inherited an alteration in BRCA2 are at increased risk of breast cancer, and can pass the non-functioning copy of the gene on to theirchildren as well. Other cancers associated with BRCA2 are prostate, pancreatic, esophageal and melanoma. It is important to keep in mind that not all individuals who inherit an alteration in BRCA1 orBRCA2 genes will develop cancer, and that most people who get these types of cancer do not have an inherited predisposition. See above for HPI and full family history. She has no current complaints/sxs. Exam: Looks well. In no physical distress. Anicteric and without evident skin lesions. Alert and Oriented. A/P:Genetic testing not recommended. Screening recommendations above. documented in this encounter Plan of Treatment Not on file documented as of this encounter Visit Diagnoses Diagnosis Family history of malignant neoplasm of breast- Primary documented in this encounter Care Teams Eyeglass Cutter Relationship Specialty Start Date End Date Emmanuel Argueta DO [address] [place] [address] PCP - General 11/27/11 documented as of this encounter
--- OUTSIDE RECORDS SUMMARY | 2024-01-10 13:50 | XMS_ITS | Encounter Summary ---
Author Organization [facility] [place] [address] Care Team Providers Care Analytical Technician Name Role Phone Emmanuel Argueta DO Primary Care Provider Encounter Details Date Type Department Care Team (Latest Contact Info) Description 05/30/2016 - 05/30/2016 11:59 PM EST Hospital Encounter [place] [address] Caleb Adam MD [facility] [place] [address] Pain Discharge Disposition: Home Social History Tobacco Use Types Packs/Day Years Used Date Smoking Tobacco: Never Assessed Sex and Gender Information Value Date Recorded Sex Assigned at Not on file Gender Identity Not on file Sexual Orientation Not on file documented as of this encounter Plan of Treatment Not on file documented as of this encounter Procedures Procedure Name Priority Date/Time Associated Diagnosis Comments FILM LIBRARY STORAGE ONLY CT ABDOMEN AND PELVIS Routine 05/30/2016 12:00 AM EST Pain documented in this encounter Results * Film Library- Storage Only CT Abdomen & Pelvis (05/30/2016 12:00 AM EST) Narrative [facility] - 05/30/2016 9:36 PM EST This exam is for storage only and is auto-finalizing. Caleb Adam MD IMG FILM LIBRARY ORD ERABLES [place], [place] documented in this encounter Visit Diagnoses Diagnosis Pain Generalized pain documented in this encounter Care Teams Analytical Technician Relationship Specialty Start Date End Date Emmanuel Argueta DO [address] [place] [address] [address] [place] [address] PCP - General 11/27/11 documented as of this encounter
--- OUTSIDE RECORDS SUMMARY | 2024-01-10 13:50 | XMS_ITS | Encounter Summary ---
Author Organization [facility] Address [address] [place] [address] Care Team Providers Care Cafe Team Member Name Role Phone Unavailable Primary Care Provider Unavailabl e Encounter Details Date Type Department Care Team (Late st Contact Info) Description 09/23/2007 Results Only [facility] - Map conversion [address] [place] [address] Pooja Elizalde, LAKSHMI Social History Tobacco Use Types Packs/Day Years Used Date Smoking Tobacco: Never Assessed Sex and Gender Information Value Date Recorded Sex Assigned at Not on file Gender Identity Not on file Sexual Orientation Not on file documented as of this encounter Plan of Treatment Not on file documented as of this encounter Procedures Procedure Name Priority Date/Time Associated Diagnosis Comments CYTOPATHOLOGY Routine 09/23/2007 0:00 EDT documented in this encounter Results * CYTOPATHOLOGY (09/23/2007 0:00 EDT) Pathology Report: CYTOPATHOLOGY REPORT Reports generated via electronic interface contain original data; however they are lacking the format of the original report. Caution should be taken when reading/interpreti ng unformatted reports. Name: ? CAMI BERNARDO ? Accession #: ? [id number] : ? 1980 (Age: 27) ??F ?Collect Date: ? 09/23/2007 Location: ? [facility] ? Receive Date: ? 09/24/2007 Provider: ?POOJA ELIZALDE SPRAYER INSECTICIDE Copy to: ? Specimen/Source: ?ThinPrep Pap Test, Cervix/Endocervix, processed on Provender ThinPrep Imaging System, with manual evaluation Last Menstrual Period: ? 08/30/07 Previous Gynecologic Pathology: ? LSIL: 2005 Treatment History: ? Colposcopy: 2004 neg. Other: ? HPVA - HPV testing requested if ASC-US on the current ThinPrep Pap test. ? SPECIMEN ADEQUACY ? Satisfactory for Evaluation - transformation zone component present GENERAL CATEGORIZATION ? Negative for Intraepithelial Lesion or Malignancy ? Document reviewed and electronically signed by: ? Amanda Jett, TERESO(ASCP)(IAC) ? Report Date: ??09/30/2007 10:14 End of Report [facility] 09/23/2007 09/24/2007 Pooja Elizalde NP PATHOLOGY ORDERABLES [facility] [address] [place] [address] documented in this encounter Visit Diagnoses Not on filedocumented in this encounter
--- OUTSIDE RECORDS SUMMARY | 2024-01-10 13:50 | XMS_ITS | Clinical Summary ---
Author Organization [facility] [place] [address] Care Team Providers Care Framing Mill Operator Name Role Phone Emmanuel Argueta DO Primary Care Provider [phone] Family History Medical History Relation Comments Cancer Brother testicular cance r Breast Cancer Mother Cancer Paternal Grandfather unknown cuauhtemoc russ Relation Status Comments Brother Mother Paternal Grandfather Social History Tobacco Use Types Packs/Day Years Used Date Smoking Tobacco: Never Assessed Sex and Gender Information Value Date Recorded Sex Assigned at Not on file Gender Identity Not on file Sexual Orientation Not on file Plan of Treatment Health Maintenance Due Date Last Done Comments CT Colonography 1978 Colonoscopy 1978 Colorectal Cancer Screening 1978 FIT DNA 1978 FIT 1980 Sigmoidoscopy (10 year) with FIT yearly 1978 Sigmoidoscopy 1978 HIV screen 1996 Hepatitis C Screening 1996 Hepatitis B vaccine (0-59 yrs) (1) 1997 Tdap adult 1997 Tetanus vaccine 1997 HPV test 2008 PAP Smear 2008 Breast Cancer Share Decision Needed 2018 Breast Cancer screening 2018 Covid-19 Vaccine (24 season) 2023 Influenza (Flu) vaccine (1 o f 1 - Influenza standard series) 02/17/2024 Care Teams Framing Mill Operator Relationship Specialty Start Date End Date Emmanuel Argueta DO [address] [place] [address] PCP - General 11/27/11
--- OUTSIDE RECORDS SUMMARY | 2024-01-10 13:50 | XMS_ITS | Encounter Summary ---
Author Organization [facility] [place] [address] Care Team Providers Care Dental Aide Name Role Phone Emmanuel Argueta DO Primary Care Provider Encounter Details Date Type Department Care Team (Late st Contact Info) Description 05/31/2016 9:54 AM EST - 05/31/2016 11:59 PM EST Hospital Encounter [place] [address] Emmanuel Argueta DO [address] [place] [address] Right sided abdominal pain Discharge Disposition: Home Social History Tobacco Use Types Packs/Day Years Used Date Smoking Tobacco: Never Assessed Sex and Gender Information Value Date Recorded Sex Assigned at Not on file Gender Identity Not on file Sexual Orientation Not on file documented as of this encounter Plan of Treatment Not on file documented as of this encounter Procedures Procedure Name Priority Date/Time Associated Diagnosis Comments REQUEST FOR 2ND READ CT ABDOMEN AND PELVIS Routine 05/31/2016 9:55 AM EST Right sided abdominal pain documented in this encounter Results * Request For 2nd Read CT Abdomen & Pelvis (05/31/2016 9:55 AM EST) Anatomical Region Laterality Modality Abdomen, Pelvis SO Impressions 05/31/2016 11:35 AM EST 1. ??Large fundal uterine fibroid. 2. ??Physiologic amount of free pelvic fluid likely related to recent ovulation which may explain patient's discomfort. 3. ??2.4 cm right adrenal nodule, likely an adrenal adenoma. Definitive characterization can be obtained with adrenal mass protocol MRI. Narrative 05/31/2016 11:35 AM EST EXAMINATION: ??REQUEST FOR 2ND READ CT ABDOMEN AND PELVIS CLINICAL HISTORY: ??RIGHT SIDED ABDOMINAL PAIN, PAIN, What Modality is the exam? Diagnostic, Body Part (please add comments as necessary): ABD/PELVIS , I believe a reinterpretation of this exam may alter care of Patient. Yes TECHNIQUE: Contrast enhanced CT of the abdomen and pelvis performed at [facility]. COMPARISON: ??None FINDINGS: Lung bases are clear. No pericardial or pleural effusions are detected. Liver, spleen, gallbladder, left adrenal gland and the kidneys are unremarkable. 2.4 cm right adrenal gland nodule is present, appears hypoenhancing to the adrenal parenchyma. Unremarkable appearance of small and large bowel. Normal appendix. No retroperitoneal or mesenteric lymphadenopathy is noted. Uterus is anteverted, measures approximately 7 cm in length and contains a large exophytic subserosal fundal mass consistent with a fibroid, which measures approximately 9.6 cm in height, 5.8 cm in length, and 6.2 cm in width with broad base (approximately 4 cm) attachment to the uterus 2010. There is a trace, physiologic amount of free pelvic fluid. Unremarkable appearance of right and left ovaries with corpus luteum noted on the right. Procedure Note Waqar Duke MD - 05/31/2016 EXAMINATION: REQUEST FOR 2ND READ CT ABDOMEN AND PELVIS CLINICAL HISTORY: RIGHT SIDED ABDOMINAL PAIN, PAIN, What Modality is theexam? Diagnostic, Body Part (please add comments as necessary): ABD/PELVIS , Ibelieve a reinterpretation of this exam may alter care of Patient. Yes TECHNIQUE: [facility]ISON: None FINDINGS: Lung bases are clear. No pericardial or pleural effusions are detected.Liver, spleen, gallbladder, left adrenal gland and the kidneys are unremarkable.2.4 cm right adrenal gland nodule is present, appears hypoenhancing to theadrenal parenchyma. Unremarkable appearance of small and large bowel. Normalappendix. No retroperitoneal or mesenteric lymphadenopathy is noted. Uterus is anteverted, measures approximately 7 cm in length and contains alarge exophytic subserosal fundal mass consistent with a fibroid, whichmeasures approximately 9.6 cm in height, 5.8 cm in length, and 6.2 cm in width withbroad base (approximately 4 cm) attachment to the uterus 2009. There is a trace, physiologic amount of free pelvic fluid. Unremarkable appearance of right and left ovaries with corpus luteum noted on theright. IMPRESSION 1. Large fundal uterine fibroid. 2. Physiologic amount of free pelvic fluid likely related to recentovulation which may explain patient's discomfort. 3. 2.4 cm right adrenal nodule, likely an adrenal adenoma. Definitive characterization can be obtained with adrenal mass protocol MRI. Emmanuel Argueta DO IMG OUTSIDE INTERPRE TATION ORDERABLES documented in this encounter Visit Diagnoses Diagnosis Right sided abdominal pain Abdominal pain, unspecified site documented in this encounter Care Teams Dental Aide Relationship Specialty Start Date End Date Emmanuel Argueta DO [address] [place] [address] [facility] [address] [place] [address] PCP - General 11/27/11 documented as of this encounter
--- OUTSIDE RECORDS SUMMARY | 2024-01-10 13:50 | XMS_ITS | Encounter Summary ---
Author Organization [facility] Address [address] [place] [address] Care Team Providers Care Desk Assistant Name Role Phone Unavailable Primary Care Provider Unavailabl e Encounter Details Date Type Department Care Team (Late st Contact Info) Description 10/13/2008 Orders Only [facility] Laboratory Services - [facility] ([facility]) [address] [place], [place] [address] Emmanuel Argueta, DO [address] [place], [place] [id number] Social History Tobacco Use Types Packs/Day Years Used Date Smoking Tobacco: Never Assessed Sex and Gender Information Value Date Recorded Sex Assigned at Not on file Gender Identity Not on file Sexual Orientation Not on file documented as of this encounter Plan of Treatment Not on file documented as of this encounter Procedures Procedure Name Priority Date/Time Associated Diagnosis Comments HPV DETECTION, HIGH RISK TYPES Routine 10/13/2008 11:52 EDT CYTOPATHOLOGY Routine 10/13/2008 0:00 EDT documented in this encounter Results * HUMAN PAPILLOMA VIRUS DNA TEST (10/13/2008 11:52 EDT) Specimen Description Cervix, ThinPrep vial [facility] Result Negative for HPV types 16, 18, 31, 33, 35, 39, 45, 51, 52, 56, 58, 59, and 68. [facility] Report Status Final 10/22/2008 [facility] 10/13/2008 11:5 2 EDT 10/19/2008 11:52 EDT Emmanuel Argueta DO MICROBIOLOGY - GEN ERAL ORDERABLES [facility] [address] [address] * CYTOPATHOLOGY (10/13/2008 0:00 EDT) Pathology Report: CYTOPATHOLOGY REPORT ? Reports generated via electronic interface contain original data; ? however they are lacking the format of the original report. ? Caution should be taken when reading/interpreti ng unformatted reports. ? Name: ? CAMI BERNARDO ? Accession #: ? [id number] ? : ? 1980 (Age: 28) ??F ?Collect Date: ? 10/13/2008 ? Location: ? [facility] ? Receive Date: ? 10/15/2008 ? Provider: ?EMMANUEL F MAURA DO ? Copy to: ? Specimen/Source: ?Pap Test, Cervix/Endocervix, ThinPrep Imaging System ? with manual evaluation ? Last Menstrual Period: ? 04/05/09 ? Previous Gynecologic Pathology: ? HPV: 2004 ? Other: ? HPVDX - HPV testing requested regardless of diagnosis on current ThinPrep Pap ?? test. ? SPECIMEN ADEQUACY ? Satisfactory for Evaluation ? - transformation zone component present ? GENERAL CATEGORIZATION ? Negative for Intraepithelial Lesion or Malignancy ? Document reviewed and electronically signed by: ? Tammy Glez, SCT(ASCP) ? Report Date: ??10/16/2008 16:18 ? End of Report ? [facility] 10/13/2008 10/15/2008 Emmanuel Argueta DO PATHOLOGY ORDERABL ES [facility] [address] [place] [address] documented in this encounter Visit Diagnoses Not on filedocumented in this encounter
--- OUTSIDE RECORDS SUMMARY | 2024-01-10 13:50 | XMS_ITS | Encounter Summary ---
Author Organization [facility] Address [address] [place] [address] Care Team Providers Care Control Panel Builder Name Role Phone Unknown, Provider Primary Care Provider [phone] Encounter Details Date Type Department Care Team (Late st Contact Info) Description 07/14/2010 Results Only [facility] Laboratory Services - [facility] ([facility]) [address] [place], [place] [address] Paris Paz, [facility] [address] [place] [address] Social History Tobacco Use Types Packs/Day Years Used Date Smoking Tobacco: Never Assessed Sex and Gender Information Value Date Recorded Sex Assigned at Not on file Gender Identity Not on file Sexual Orientation Not on file documented as of this encounter Plan of Treatment Not on file documented as of this encounter Procedures Procedure Name Priority Date/Time Associated Diagnosis Comments CYTOPATHOLOGY Routine 07/14/2010 0:00 EST documented in this encounter Results * CYTOPATHOLOGY (07/14/2010 0:00 EST) Pathology Report: CYTOPATHOLOGY REPORT ? Reports generated via electronic interface contain original data; ? however they are lacking the format of the original report. ? Caution should be taken when reading/interpreti ng unformatted reports. ? Name: ? CAMI PIERCE ? Accession #: ? [id number] ? : ? 1980 (Age: 29) ??F ?Collect Date: ? 07/14/2010 ? Location: ? [facility] ? Receive Date: ? 07/15/2010 ? Provider: ?PARIS YURIDIA RF ENGINEER ? Copy to: ? Specimen/Source: ?Pap Test, Cervix/Endocervix, ThinPrep Imaging System ? with manual evaluation ? Last Menstrual Period: ? 01/17/11 ? Previous Gynecologic Pathology: ? LSIL: 2005 ? HPV: + ? Treatment History: ? Colposcopy: neg. ? SPECIMEN ADEQUACY ? Satisfactory for Evaluation ? - transformation zone component present ? GENERAL CATEGORIZATION ? Negative for Intraepithelial Lesion or Malignancy ? Document reviewed and electronically signed by: ? Vernell F. Colasacco, SCT(ASCP) ? Report Date: ??07/21/2010 15:53 ? End of Report ? [facility] 07/14/2010 07/15/2010 Paris Paz RF ENGINEER PATHOLOGY ORDERABLES [facility] [address] [place] [address] documented in this encounter Visit Diagnoses Not on filedocumented in this encounter Care Teams Control Panel Builder Relationship Specialty Start Date End Date Unknown, Provider, PCP - General 07/15/10 07/08/17 documented as of this encounter
[2024-01-10 18:37] LABS: Abs Immature Grans 0.03 10^3/uL (0.0-0.06); Absolute Basophil Count 0.08 10^3/uL (0.0-0.2); Absolute Eosinophil Count 0.14 10^3/uL (0.0-0.7); Absolute Lymphocyte Count 2.43 10^3/uL (1.2-3.4); Absolute Monocyte Count 0.53 10^3/uL (0.1-0.8); Absolute Neutrophil Count 4.33 10^3/uL (1.2-6.7); Basophils % 1.1 %; Eosinophils % 1.9 %; HCT 42.4 % (36.0-46.0); HGB 14.7 g/dL (11.2-15.7); Immature Grans % 0.4 %; Lymphocytes % 32.2 %; MCH 32.7 pg (27.0-33.0); MCHC 34.7 % (32.0-36.0); MCV 94 fL (80-95); MPV 8.6 fL (8.0-11.0); Neutrophils % 57.4 %; Platelet Count 396 10^3/uL (130-400); RBC 4.49 10^6/uL (3.93-5.22); RDW 11.6 % (11.7-14.6); WBC 7.54 10^3/uL (4.4-10.8)
[2024-01-10 18:51] LABS: Hemoglobin A1C 5.5 % (<5.7)
[2024-01-10 19:03] LABS: ALT 35 U/L (14-59); AST 18 U/L (15-37); Albumin 4.1 g/dL (3.4-5.0); Alkaline Phosphatase 87 U/L (46-116); Anion Gap 8.6 mmol/L (3-11); BUN 10 mg/dL (7-18); Bilirubin, Total 0.34 mg/dL (0.2-1.0); CO2 28.4 mmol/L (21.0-32.0); CREATININE 0.8 mg/dL (0.55-1.02); Calcium 9.1 mg/dL (8.5-10.1); Calculated LDL 140 mg/dL (<100); Chloride 102 mmol/L (98-107); Cholesterol 234 mg/dL (<200); Estimated GFR 92.54 (mL/min/1.73m2); Glucose 106 mg/dL (74-106); HDL Cholesterol 46 mg/dL (40-60); Potassium 4.3 mmol/L (3.5-5.1); Sodium 139 mmol/L (136-145); TSH (W/Ref FT4) 2.94 uIU/mL (0.36-3.74); Total Protein 7.1 g/dL (6.4-8.2); Triglyceride 243 mg/dL (<150)
[2024-01-10 19:33] LABS: Lipase 45 U/L (16-77)
== END 2024-01-10 13:47 | disposition home or self-care (01) ==
LOC: NCHCN 13:46
PROVIDERS: PCP Nurse Practitioner Family; Visit Provider Nurse Practitioner Family
DX: R53.83 Other fatigue (principal); R10.12 Left upper quadrant pain; Z13.6 Encounter for screening for cardiovascular disorders; Z13.1 Encounter for screening for diabetes mellitus
CPT/HCPCS: 80053; 80061; 83690; 83036; 84443; 85025

== ENCOUNTER 2025-01-12 14:48 | Outpatient (REF) | payer OTHER, SELFPAY ==
[2025-01-12 21:20] LABS: Abs Immature Grans 0.04 10^3/uL (0.0-0.06); HCT 41.0 % (36.0-46.0); HGB 13.8 g/dL (11.2-15.7); Immature Grans % 0.4 %; MCH 31.3 pg (27.0-33.0); MCHC 33.7 % (32.0-36.0); MCV 93 fL (80-95); MPV 9.1 fL (8.0-11.0); Platelet Count 381 10^3/uL (130-400); RBC 4.41 10^6/uL (3.93-5.22); RDW 11.4 % (11.7-14.6); RDW-SD 39.2 fL; WBC 10.61 10^3/uL (4.4-10.8)
[2025-01-12 21:31] LABS: ALT 39 U/L (14-59); AST 18 U/L (15-37); Albumin 4.1 g/dL (3.4-5.0); Alkaline Phosphatase 75 U/L (46-116); Anion Gap 8.3 mmol/L (3-11); BUN 13 mg/dL (7-18); Bilirubin, Total 0.3 mg/dL (0.2-1.0); CO2 28.7 mmol/L (21.0-32.0); Calcium 9.6 mg/dL (8.5-10.1); Chloride 102 mmol/L (98-107); Estimated GFR 107.95 (mL/min/1.73m2); Glucose 105 mg/dL (74-106); Potassium 4.2 mmol/L (3.5-5.1); Sodium 139 mmol/L (136-145); Total Protein 7.1 g/dL (6.4-8.2)
== END 2025-01-12 14:49 | disposition home or self-care (01) ==
LOC: NCHCN 14:48
PROVIDERS: Nurse Practitioner; PCP Nurse Practitioner Family; Visit Provider Student in an Organized Health Care Education/Training Program
DX: F32.9 Major depressive disorder, single episode, unspecified (principal)
CPT/HCPCS: 80053; 85025

== ENCOUNTER 2025-01-22 03:17 | Outpatient (CLI) | payer OTHER, SELFPAY ==
--- NOTE | 2025-01-22 08:04 | DI.MAMMO_ITS ---
Exam(s) MAMMO SCREENING EXAM: MAMMO SCREENING CLINICAL HISTORY: Z12.31 Screening mammogram TECHNIQUE: Bilateral full field digital CC and MLO mammographic images were obtained with 3D tomosynthesis and utilizing computer aided detection (CAD). COMPARISON: Comparison is made with prior examinations. FINDINGS: Masses/Architectural Distortion: No suspicious masses or areas of architectural distortion are present. There is an area of increased density in the outer left breast on the MLO view. It is more prominent compared to the prior examination. Microcalcifications: No suspicious pleomorphic-type are seen. Skin Thickening/Nipple Retraction: None. IMPRESSION: 1. There is an area of increased density in the outer left breast on the craniocaudad view. This may represent overlying fibroglandular tissue. 2. A spot compression views requested for further evaluation. Ultrasound may be indicated at that time. BI-RADS Category 0 - Incomplete: Need additional imaging evaluation Breast Density - Category B - There are scattered areas of fibroglandular density. Breast density Category C or D implies that the patient has dense breast tissue. Dense breast tissue can make it harder to find cancer on a mammogram. Dense breast tissue is also associated with an increased risk of breast cancer. This information about the result of the mammogram report was provided to the patient to raise their awareness. Use this report when you speak with the patient about their risks for breast cancer, which includes their family history. At that time, you may recommend additional screening tests (Ultrasound or MRI) as these tests may add significant information. A negative radiographic report should not delay biopsy if a dominant or clinically suspicious mass is present. Up to ten percent of cancers are not identified on mammography. A negative report may reinforce clinical impression. Adenosis and dense breasts may obscure an underlying neoplasm. False positive reports average 6 to 10%. Patient will receive a letter notifying them of these results.
== END 2025-01-22 03:37 ==
PROVIDERS: PCP Nurse Practitioner Family; Visit Provider Student in an Organized Health Care Education/Training Program
DX: Z12.31 Encounter for screening mammogram for malignant neoplasm of breast (principal); R92.323 Mammographic fibroglandular density, bilateral breasts
CPT/HCPCS: 77063; 77067

== ENCOUNTER 2025-02-03 01:34 | Outpatient (CLI) | payer OTHER, SELFPAY ==
--- NOTE | 2025-02-03 10:26 | DI.MAMMO_ITS ---
Exam(s) MG MAMMO SCREEN CALL BACK UNI US BREAST LT COMPLETE EXAM: MG MAMMO SCREEN CALL BACK UNI-LEFT AND COMPLETE LEFT BREAST ULTRASOUND CLINICAL HISTORY: F/U [facility] MAMMO, AREA INC DENSITY OUTER LT BREAST. TECHNIQUE: Unilateral s LEFT BREAST pot mammographic images obtained with 3D tomosynthesisand utilizing computer aided detection (CAD). . Complete LEFT breast Ultrasound was also performed, including all 4 quadrants, the retroareolar region, and the ipsilateral axilla. COMPARISON: Prior mammograms were reviewed. This additional imaging was performed due to findings described on the recent screening mammogram of 01/22/2025. FINDINGS: DIAGNOSTIC MAMMOGRAM: Additional mammographic views performed todayrender this area less concerning and similar in appearance prior mammograms. COMPLETE LEFT BREAST ULTRASOUND: Ultrasound performed today reveals no evidence of solid or significant cystic lesions in all 4 quadrants.. Scanning of the ipsilateral axilla reveals no significant adenopathy. IMPRESSION: 1. No radiographic evidence of malignancy. 2. Negative complete left breast ultrasound Appropriate follow-up is keep this patient on her yearly mammogram schedule, with earlier imaging if a self detected breast change is noted.. The patient was informed of these findings and recommendations by myself prior to leaving the department today. BI-RADS Category 2 - Benign Findings Breast Density - Category B - There are scattered areas of fibroglandular density. Breast density Category C or D implies that the patient has dense breast tissue. Dense breast tissue can make it harder to find cancer on a mammogram. Dense breast tissue is also associated with an increased risk of breast cancer. This information about the result of the mammogram report was provided to the patient to raise their awareness. Use this report when you speak with the patient about their risks for breast cancer, which includes their family history. At that time, you may recommend additional screening tests (Ultrasound or MRI) as these tests may add significant information. A negative radiographic report should not delay biopsy if a dominant or clinically suspicious mass is present. Up to ten percent of cancers are not identified on mammography. A negative report may reinforce clinical impression. Adenosis and dense breasts may obscure an underlying neoplasm. False positive reports average 6 to 10%. Patient will receive a letter notifying them of these results.
== END 2025-02-03 01:54 ==
LOC: DI 01:34
PROVIDERS: PCP Student in an Organized Health Care Education/Training Program; Visit Provider Student in an Organized Health Care Education/Training Program
DX: Z12.31 Encounter for screening mammogram for malignant neoplasm of breast (principal); R92.323 Mammographic fibroglandular density, bilateral breasts
CPT/HCPCS: 76642; 77063; 77067